=== PATIENT | female | born 1985 | race Caucasian/White ===

== ENCOUNTER 2018-03-26 18:14 | Inpatient (IN) | payer OTHER ==
[~2018-03-26] VITALS: Ht 157.5 cm; Wt 86.2 kg
[2018-03-26] MEDS ORDERED: PRENATAL TABLE1 EAC1 PO (18:25)
[2018-03-26] MEDS ORDERED: FOLIC ACID1 MG PO (18:26)
== END 2018-03-27 11:17 | disposition home or self-care (01) | DRG 780 ==
LOC: LDR 18:14 → OB/GYN 03-30 09:45
PROC: BY4FZZZ Ultrasonography of Third Trimester, Single Fetus (ICD-10-PCS; principal; 2018-03-27)
PROC: 4A1HXCZ Monitoring of Products of Conception, Cardiac Rate, External Approach (ICD-10-PCS; 2018-03-27)
DX: O47.1 False labor at or after 37 completed weeks of gestation (principal)

== ENCOUNTER 2018-03-30 04:22 | Inpatient (IN) | payer OTHER ==
[~2018-03-30] VITALS: Ht 157.5 cm; Wt 86.2 kg
[~2018-03-30 04:22] MED LIST: FOLIC ACID1 MG PO; PRENATAL TABLE1 EAC1 PO
== END 2018-04-01 13:33 | DRG 774 ==
LOC: OB/GYN 04:22 → LDR 04:22 → OB/GYN 10:12
PROC: 10E0XZZ Delivery of Products of Conception, External Approach (ICD-10-PCS; principal; 2018-03-30)
PROC: 0UQGXZZ Repair Vagina, External Approach (ICD-10-PCS; 2018-03-30)
PROC: 3E033VJ Introduction of Other Hormone into Peripheral Vein, Percutaneous Approach (ICD-10-PCS; 2018-03-30)
PROC: 4A1HXCZ Monitoring of Products of Conception, Cardiac Rate, External Approach (ICD-10-PCS; 2018-03-30)
DX: O71.4 Obstetric high vaginal laceration alone (principal); O98.82 Other maternal infectious and parasitic diseases complicating childbirth; B95.1 Streptococcus, group B, as the cause of diseases classified elsewhere; Z3A.38 38 weeks gestation of pregnancy; Z37.0 Single live birth

== ENCOUNTER 2020-12-23 14:21 | Outpatient (CLI) | payer OTHER | END 2020-12-23 14:58 | disposition home or self-care (01) | LOC: NST 14:21 | PROVIDERS: ATTEND Obstetrics & Gynecology | DX: Z34.83 Encounter for supervision of other normal pregnancy, third trimester (principal) ==

== ENCOUNTER 2021-01-11 14:08 | Outpatient (CLI) | payer OTHER | END 2021-01-11 14:38 | disposition home or self-care (01) | LOC: NST 14:08 | PROVIDERS: ATTEND Obstetrics & Gynecology Maternal & Fetal Medicine | DX: O60.03 Preterm labor without delivery, third trimester (principal); Z3A.35 35 weeks gestation of pregnancy ==

== ENCOUNTER 2021-01-19 13:14 | Outpatient (CLI) | payer OTHER ==
[2021-01-19] MEDS ORDERED: PRENATAL TABLE1 EAC1 PO (14:48)
== END 2021-01-19 14:43 | disposition home or self-care (01) ==
LOC: NST 13:14
PROVIDERS: ATTEND Obstetrics & Gynecology Maternal & Fetal Medicine
DX: Z34.83 Encounter for supervision of other normal pregnancy, third trimester (principal)

== ENCOUNTER 2021-01-22 12:30 | Inpatient (IN) | payer OTHER ==
[~2021-01-22] VITALS: Ht 157.5 cm; Wt 85.7 kg
[2021-02-03] MEDS ORDERED: TYLENOL EXTRA500 MG PO (22:15)
== END 2021-02-05 13:27 | disposition home or self-care (01) | DRG 807 ==
LOC: LDR 02-02 12:47 → OB/GYN 02-02 12:47 → LDR 02-03 20:01 → OB/GYN 02-03 22:00
PROVIDERS: ADMIT Obstetrics & Gynecology; ATTEND Obstetrics & Gynecology
PROC: 10E0XZZ Delivery of Products of Conception, External Approach (ICD-10-PCS; principal; 2021-02-03)
PROC: 4A1HXFZ Monitoring of Products of Conception, Cardiac Rhythm, External Approach (ICD-10-PCS; 2021-02-03)
DX: O99.824 Streptococcus B carrier state complicating childbirth (principal); Z37.0 Single live birth; Z3A.38 38 weeks gestation of pregnancy; Z20.822 Contact with and (suspected) exposure to COVID-19